=== PATIENT | male | born 1950 | race Caucasian/White ===

== ENCOUNTER → 2021-03-21 | Outpatient (CLI) | payer MEDICARE ==
[~2021-03-21] MED LIST: PROAIR HFA8.5 GM INH
== END ==
LOC: HEART 5 14:46
DX: I73.9 Peripheral vascular disease, unspecified (principal)

== ENCOUNTER → 2021-04-11 | Outpatient (CLI) | payer MEDICARE | LOC: US 09:56 | DX: Z13.6 Encounter for screening for cardiovascular disorders (principal); I65.23 Occlusion and stenosis of bilateral carotid arteries | CPT/HCPCS: 76706; 93880 ==

== ENCOUNTER 2021-04-27 16:44 | Emergency (ER) | payer MEDICARE ==
[~2021-04-27] VITALS: Ht 177.8 cm; Wt 93.0 kg
[2021-04-27] MEDS ORDERED: PROAIR HFA8.5 GM INH (20:44)
== END 2021-04-27 22:24 | disposition home or self-care (01) ==
LOC: ER1 16:44
DX: Z23 Encounter for immunization (principal); U07.1 COVID-19; F17.200 Nicotine dependence, unspecified, uncomplicated
CPT/HCPCS: 99283; M0243; U0002